=== PATIENT | male | born 1980 | race Caucasian/White ===

== ENCOUNTER 2019-11-09 07:57 | Emergency (ER) | payer SELFPAY ==
[2019-11-09 08:01] VITALS: BP 141/84; PULSE 86; RESP 16; TEMP 36.8; O2SAT 99; BMI 27.3
--- NOTE | 2019-11-09 08:02 | W.ED.URI ---
Documented by User: Luis E Castaneda DO 11/09/19 15:59 HPI - URI/Sore Throat General: Chief Complaint: Dental/Oral Stated Complaint: SORE THROAT Time Seen by Provider: 11/09/19 08:01 History of Present Illness: HPI Narrative: 39 yo male presents with a sore throat. It began about 4 to 5 days ago he has some amoxicillin he started taking 3 to 4 days ago from previous prescription. He had a fever but no rashes been nauseous not had any cough. Has not had any shortness of breath. He has severe throat pain localized to the left side. He states he gets these about once or twice per year previously he has had a retropharyngeal abscess that required surgical drainage. MD elicited complaint: fever and sore throat Pertinent past history: other (Recurrent strep including retropharyngeal abscesses requiring surgical drainage in the past) Onset (ago): day(s) (3 to 4 days) Consistency: constant Severity: severe Pain scale (0-10): 10 Description of mucous: purulent Able to tolerate fluids by mouth: Yes Exacerbating factors: swallowing Relieving factors: nothing Context: sick contacts Associated symptoms: Reports change in voice, chills, headache(s), nausea and vomiting; Deny chest pain, ear or mastoid pain or nasal congestion Treatments prior to arrival: acetaminophen, ibuprofen and antibiotics (Started a leftover course of amoxicillin 3 to 4 days ago) Review of Systems Const: Reports: chills ENMT: Denies: throat pain, ear or mastoid pain, nasal discharge or nasal congestion Card: Denies: chest pain, edema, dyspnea on exertion or orthopnea Resp: Denies: dyspnea, productive cough or non-productive cough GI: Reports: nausea and vomiting : Denies: flank pain, dysuria, urinary frequency or urinary urgency Skin/Breast: Denies: rash or pruritus Neuro: Reports: headache(s) PFSH ED PFSH: Medical History (Updated 11/09/19 @ 10:56 by Heidi Crow) History of retropharyngeal abscess History of seizures Social History Current gender identity: Male Physical Exam Const: COMMON NORMALS: no acute distress GENERAL APPEARANCE: cooperative and comfortable ORIENTATION/CONSCIOUSNESS: Yes awake, Yes oriented to person, Yes oriented to place and Yes oriented to time HENMT: COMMON NORMALS: normocephalic, atraumatic, hearing grossly normal bilaterally, external ears normal, EAC's normal, TM's normal bilaterally and Normal nasal mucous membranes and turbinates present HEAD & SCALP: normocephalic and atraumatic NOSE: Normal nasal mucous membranes and turbinates present EXTERNAL EAR: Yes external ears normal EXTERNAL AUDITORY CANAL: EAC's normal TYMPANIC MEMBRANE: TM's normal bilaterally OTHER: Enlarged retropharyngeal abscess on the left shifting to the midline, but does not cross the midline. There is no retropharyngeal abscess on the right there is exudative drainage. Markedly erythematous. Eye: COMMON NORMALS: Equal, round and reactive pupils present, EOMs intact bilaterally, conjunctivae normal and no scleral icterus CONJUNCTIVA: Yes conjunctivae normal PUPIL: Yes Equal, round and reactive pupils present Neck/C-Spine: COMMON NORMALS: full ROM, no lymphadenopathy, supple and no JVD Lymph: LYMPHATIC: no lymphadenopathy noted and no lymphedema noted Resp: COMMON NORMALS: normal respiratory effort, No retractions, No use of accessory muscles and clear to auscultation bilaterally AUSCULTATION: clear to auscultation bilaterally Cardio: COMMON NORMALS: no JVD, regular rate, regular rhythm and No murmurs present (Cardio) RATE: regular rate RHYTHM: regular rhythm GI: COMMON NORMALS: Soft to palpation and No hepatosplenomegaly present AUSCULTATION: Yes normoactive bowel sounds PALPATION: Yes Soft to palpation, No Tenderness to palpation present (GI), No Guarding due to palpation present (GI) and Yes No hepatosplenomegaly present Extremity: COMMON NORMALS: normal to inspection, capillary refill normal, no clubbing, cyanosis or edema, no calf tenderness and no pedal edema Neuro: SENSORIUM/ORIENTATION: Yes oriented to person, Yes oriented to place and Yes oriented to time Skin: COMMON NORMALS: no rashes or lesions noted GENERAL SKIN EXAM: no rashes or lesions noted Course Vital Signs: Vital signs: Vital Signs Temperature 98.3 F 11/09/19 08:01 Pulse Rate 70 11/09/19 11:49 Respiratory Rate 14 11/09/19 11:49 Blood Pressure 145/90 11/09/19 11:49 Pulse Oximetry 99 11/09/19 11:49 MDM - URI/Sore Throat MDM Narrative: Medical decision making narrative: Care turned over to Dr. Crow at change of shift. Please see his notes for final diagnosis and disposition. Lab Data: Labs: Lab Results 11/09/19 11/09/19 11/09/19 Range/Units 08:20 08:20 10:32 WBC 12.3 H (4.0-10.0) 10^3/ uL RBC 4.95 (4.1-5.3) 10^6/u L Hgb 16.0 (11.7-16.6) g/dL Hct 46.9 (42.0-52.0) % MCV 94.7 H (80-94) fL MCH 32.3 (28.0-34.0) pg MCHC 34.1 (30.0-36.0) g/dL RDW 13.2 (12.1-15.1) % Plt Count 335 (130-400) 10^3/c mm MPV 9.4 (7.4-10.4) fL Neut % (Auto) 75.7 % Lymph % (Auto) 12.6 % [place] % (Auto) 9.8 % Eos % (Auto) 1.3 % Baso % (Auto) 0.3 % Neut # (Auto) 9.3 H (1.8-7.7) 10^3/u L Lymph # (Auto) 1.6 (0.8-4.8) 10^3/u L [place] # (Auto) 1.2 H (0.2-0.9) 10^3/u L Eos # (Auto) 0.2 (0.0-0.8) 10^3/u L Baso # (Auto) 0.0 (0.0-0.1) 10^3/u L Nucleated RBC % (a uto) 0 % Nucleated RBCs # 0.0 /100WBC Sodium 137 (136-145) mmol/L Potassium 4.0 (3.5-5.1) mmol/L Chloride 99 (98-107) mmol/L Carbon Dioxide 26 (22-29) mmol/L Anion Gap 16.0 (5-19) BUN 8 (6-20) mg/dL Creatinine 1.0 (0.7-1.2) mg/dL GFR Calculation 82.8 L (90-130) mL/min Glucose 128 H (65-115) mg/dL Calculated Osmolal ity 282 L (285-295) mOsm/k g Calcium 10.3 (8.5-10.5) mg/dL Total Bilirubin 0.4 (0.15-1.2) mg/dL AST 17 (0-40) U/L ALT 14 (0-41) U/L Alkaline Phosphata se 99 (40-130) IU/L Total Protein 8.0 (6.6-8.7) g/dL Albumin 4.1 (3.5-5.2) g/dL Globulin 3.9 (1.3-4.6) g/dL Urine Color Yellow (Yellow) Urine Appearance Clear (CLEAR) Urine pH 7 (5-7) Ur Specific Gravit y 1.005 (1.005-1.030) Urine Protein Neg (Negative) Urine Glucose (UA) Norm (Normal) Urine Ketones Negative (Negative) Urine Blood Neg (Negative) Urine Nitrate Negative (Negative) Urine Bilirubin Neg (NEGATIVE) Urine Urobilinogen Norm (Negative) mg/dL Ur Leukocyte Chantel ase Negative (Negative) Discharge Plan Discharge Patient Disposition: Home, Self-Care Clinical Impression: Abscess, peritonsillar Condition: Stable Prescriptions: New prednisone 10 mg tablet 20 mg PO TID 5 Days Qty: 30 RF: 0 [place] 5-325 mg tablet 1 tab PO Q6H PRN (Reason: pain) 5 Days Qty: 12 RF: 0 Zofran 4 mg tablet 4 mg PO Q6H PRN (Reason: nausea and vomiting) Qty: 20 RF: 0 Cleocin HCl 150 mg capsule 300 mg PO Q6H 10 Days Qty: 80 RF: 0 No Action lamotrigine [Lamictal] 25 mg tablet 25 mg PO DAILY Qty: 30 RF: 1 aripiprazole [Abilify] 5 mg tablet 5 mg PO DAILY Qty: 30 RF: 1 Discharge Orders: Discharge Order (Routine); Ordered 11/09/19 Ordered By: Heidi Crow Referrals: Torie Fraesr MD [Primary Care Provider] - Discharge Diet: Clear Liquid Discharge Activity: Limit activity as instructed Patient Instructions: Peritonsillar Abscess (ED) Activity Restrictions/Additional Instructions: Please return to the ER immediately for any of the signs or symptoms listed on your discharge instruction sheets, worsening/changing of your symptoms, you are not getting better as quickly as expected, or for ANY other cause or concerns. Call Colin JESSICA in the clinic first thing tomorrow morning [phone] and they will be certain to fit you in tomorrow for definitive management of your abscess. Return to the ER sooner for increased pain, difficulty swallowing, vomiting, or for any other cause for concern. Discharge Date/Time: 11/09/19 11:49 Sign Out Sign Out Data: Patient Sign Out occurred on 11/09/19 at 09:14. Patient's care was discussed, and care was transferred from to Heidi Crow. Coding Level of Care Code ED Branch Store Manager for Chg Fwd Exam Comprehensive Documented by User: Heidi Crow 11/09/19 10:58 HPI - URI/Sore Throat General: Chief Complaint: Dental/Oral Stated Complaint: SORE THROAT Time Seen by Provider: 11/09/19 08:01 [facility], [facility] ED PFSH: Medical History (Updated 11/09/19 @ 10:56 by Heidi Crow) History of retropharyngeal abscess History of seizures Social History Current gender identity: Male Course Vital Signs: Vital signs: Vital Signs Temperature 98.3 F 11/09/19 08:01 Pulse Rate 70 11/09/19 11:49 Respiratory Rate 14 11/09/19 11:49 Blood Pressure 145/90 11/09/19 11:49 Pulse Oximetry 99 11/09/19 11:49 MDM - URI/Sore Throat MDM Narrative: Medical decision making narrative: Patient's case was reviewed with the ENT on-call Dr. Shaw at [facility]. She agrees to see the patient in follow-up tomorrow for definitive drainage. I reviewed this plan with the patient and he confirms to me that he can make that appointment and should not have any problem doing so. He agrees to return should his symptoms change or worsen but at this time he is talking much better and he is feeling a great deal improved from when he came in. Colin wants the patient to be on clindamycin and steroids at home. Lab Data: Attestation: I reviewed the patient's lab results. Labs: Lab Results 11/09/19 11/09/19 11/09/19 Range/Units 08:20 08:20 10:32 WBC 12.3 H (4.0-10.0) 10^3/ uL RBC 4.95 (4.1-5.3) 10^6/u L Hgb 16.0 (11.7-16.6) g/dL Hct 46.9 (42.0-52.0) % MCV 94.7 H (80-94) fL MCH 32.3 (28.0-34.0) pg MCHC 34.1 (30.0-36.0) g/dL RDW 13.2 (12.1-15.1) % Plt Count 335 (130-400) 10^3/c mm MPV 9.4 (7.4-10.4) fL Neut % (Auto) 75.7 % Lymph % (Auto) 12.6 % [place] % (Auto) 9.8 % Eos % (Auto) 1.3 % Baso % (Auto) 0.3 % Neut # (Auto) 9.3 H (1.8-7.7) 10^3/u L Lymph # (Auto) 1.6 (0.8-4.8) 10^3/u L [place] # (Auto) 1.2 H (0.2-0.9) 10^3/u L Eos # (Auto) 0.2 (0.0-0.8) 10^3/u L Baso # (Auto) 0.0 (0.0-0.1) 10^3/u L Nucleated RBC % (a uto) 0 % Nucleated RBCs # 0.0 /100WBC Sodium 137 (136-145) mmol/L Potassium 4.0 (3.5-5.1) mmol/L Chloride 99 (98-107) mmol/L Carbon Dioxide 26 (22-29) mmol/L Anion Gap 16.0 (5-19) BUN 8 (6-20) mg/dL Creatinine 1.0 (0.7-1.2) mg/dL GFR Calculation 82.8 L (90-130) mL/min Glucose 128 H (65-115) mg/dL Calculated Osmolal ity 282 L (285-295) mOsm/k g Calcium 10.3 (8.5-10.5) mg/dL Total Bilirubin 0.4 (0.15-1.2) mg/dL AST 17 (0-40) U/L ALT 14 (0-41) U/L Alkaline Phosphata se 99 (40-130) IU/L Total Protein 8.0 (6.6-8.7) g/dL Albumin 4.1 (3.5-5.2) g/dL Globulin 3.9 (1.3-4.6) g/dL Urine Color Yellow (Yellow) Urine Appearance Clear (CLEAR) Urine pH 7 (5-7) Ur Specific Gravit y 1.005 (1.005-1.030) Urine Protein Neg (Negative) Urine Glucose (UA) Norm (Normal) Urine Ketones Negative (Negative) Urine Blood Neg (Negative) Urine Nitrate Negative (Negative) Urine Bilirubin Neg (NEGATIVE) Urine Urobilinogen Norm (Negative) mg/dL Ur Leukocyte Chantel ase Negative (Negative) Imaging Data^: CT Soft Tissue Neck: Radiologist's impression: [place] [address] CT Scan Report Signed Patient: David Parks Unit #: [id number] : 1980 Age/Sex: 39 / M ADM Date: 11/09/19 Loc: ER Room/Bed: Attending Dr: Ordering Provider/Ordering MD: Luis E Castaneda DO Date of Service: 11/09/19 Procedure(s): CT neck w con* [id number] Accession Number(s): [id number] Report Number: [id number] PROCEDURE INFORMATION: Exam: CT Neck With Contrast Exam date and time: 11/09/2019 8:27 AM Age: 39 years old Clinical indication: Throat pain; Prior surgery; Surgery type: HX of abscess; Additional info: L sife pharyngeal abscess TECHNIQUE: Imaging protocol: Computed tomography images of the neck with intravenous contrast. Delayed images were also obtained. Radiation optimization: All CT scans at this facility use at least one of these dose optimization techniques: automated exposure control; mA and/or kV adjustment per patient size (includes targeted exams where dose is matched to clinical indication); or iterative reconstruction. Contrast material: Omnipaque 300; Contrast volume: 95 ml; Contrast route: INTRAVENOUS (IV); COMPARISON: CT neck w con* [id number] 01/16/2019 9:40 PM RADIATION DOSE METRICS: Total DLP (mGy-cm): 737.44 FINDINGS: Auditory system: Left hypo pharyngeal sidewall edema. Nasopharynx: Unremarkable. Dental: Carious right mandibular 2nd molar with 5.1 x 4.1 x 5.0 mm periapical abscess. Oropharynx: Bilateral palatine tonsillar hypertrophy. Extensive left peritonsillar abscess posterior medially, inferiorly and inferolaterally, in aggregate measuring maximally 3.0 x 2.5 x 2.2 cm. Left palatine tonsillar tonsilloliths. Left parapharyngeal space soft tissue edema. Hypopharynx: Unremarkable. Larynx: Unremarkable. Normal epiglottis. Retropharyngeal space: No retropharyngeal abscess identified. Submandibular/Parotid glands: Normal. Glands are normal in size. Thyroid: Normal. No enlarged or calcified nodules. Lymph nodes: Left level 2 lymph nodes, largest measuring 15.1 mm short axis. Right level 2 lymph nodes, largest measuring 13 mm short axis. Left posterior submandibular lymph node measuring 7 mm short axis. Left level 3 lymph nodes, largest measuring 12.9 mm short axis. Trachea: Visualized trachea is unremarkable. Lungs: Unremarkable as visualized. Bones/joints: Unremarkable. No acute fracture. Soft tissues: Unremarkable. No significant soft tissue swelling. CT/CT neck w con* [id number] IMPRESSION: 1. Left peritonsillar abscess. 2. Bilateral cervical lymphadenopathy. 3. Carious right mandibular 2nd molar with 5periapical abscess. Radiation Dose CTDIVOL = (mGy): DLP = 737.44 (mGy-cm) Dictated By: Neo Naylor MD Signed By: Neo Naylor MD Signed Date/Time: 11/09/19950 DD/ 8 Discharge Plan Discharge Patient Disposition: Home, Self-Care Clinical Impression: Abscess, peritonsillar Condition: Stable Prescriptions: New prednisone 10 mg tablet 20 mg PO TID 5 Days Qty: 30 RF: 0 [place] 5-325 mg tablet 1 tab PO Q6H PRN (Reason: pain) 5 Days Qty: 12 RF: 0 Zofran 4 mg tablet 4 mg PO Q6H PRN (Reason: nausea and vomiting) Qty: 20 RF: 0 Cleocin HCl 150 mg capsule 300 mg PO Q6H 10 Days Qty: 80 RF: 0 No Action lamotrigine [Lamictal] 25 mg tablet 25 mg PO DAILY Qty: 30 RF: 1 aripiprazole [Abilify] 5 mg tablet 5 mg PO DAILY Qty: 30 RF: 1 Discharge Orders: Discharge Order (Routine); Ordered 11/09/19 Ordered By: Heidi Crow Referrals: Torie Fraser MD [Primary Care Provider] - Discharge Diet: Clear Liquid Discharge Activity: Limit activity as instructed Patient Instructions: Peritonsillar Abscess (ED) Activity Restrictions/Additional Instructions: Please return to the ER immediately for any of the signs or symptoms listed on your discharge instruction sheets, worsening/changing of your symptoms, you are not getting better as quickly as expected, or for ANY other cause or concerns. Call Ms. Colin LOPEZ in the clinic first thing tomorrow morning [phone] and they will be certain to fit you in tomorrow for definitive management of your abscess. Return to the ER sooner for increased pain, difficulty swallowing, vomiting, or for any other cause for concern. Discharge Date/Time: 11/09/19 11:49 Sign Out Sign Out Data: Patient Sign Out occurred on 11/09/19 at 09:14. Patient's care was discussed, and care was transferred from to Heidi Crow. Coding Level of Care Code ED Branch Store Manager for Chg Fwd Exam Comprehensive
--- NOTE | 2019-11-09 08:09 | CTR_ITS ---
PROCEDURE INFORMATION: Exam: CT Neck With Contrast Exam date and time: 11/09/2019 8:27 AM Age: 39 years old Clinical indication: Throat pain; Prior surgery; Surgery type: HX of abscess; Additional info: L sife pharyngeal abscess TECHNIQUE: Imaging protocol: Computed tomography images of the neck with intravenous contrast. Delayed images were also obtained. Radiation optimization: All CT scans at this facility use at least one of these dose optimization techniques: automated exposure control; mA and/or kV adjustment per patient size (includes targeted exams where dose is matched to clinical indication); or iterative reconstruction. Contrast material: Omnipaque 300; Contrast volume: 95 ml; Contrast route: INTRAVENOUS (IV); COMPARISON: CT neck w con* [id number] 01/16/2019 9:40 PM RADIATION DOSE METRICS: Total DLP (mGy-cm): 737.44 FINDINGS: Auditory system: Left hypo pharyngeal sidewall edema. Nasopharynx: Unremarkable. Dental: Carious right mandibular 2nd molar with 5.1 x 4.1 x 5.0 mm periapical abscess. Oropharynx: Bilateral palatine tonsillar hypertrophy. Extensive left peritonsillar abscess posterior medially, inferiorly and inferolaterally, in aggregate measuring maximally 3.0 x 2.5 x 2.2 cm. Left palatine tonsillar tonsilloliths. Left parapharyngeal space soft tissue edema. Hypopharynx: Unremarkable. Larynx: Unremarkable. Normal epiglottis. Retropharyngeal space: No retropharyngeal abscess identified. Submandibular/Parotid glands: Normal. Glands are normal in size. Thyroid: Normal. No enlarged or calcified nodules. Lymph nodes: Left level 2 lymph nodes, largest measuring 15.1 mm short axis. Right level 2 lymph nodes, largest measuring 13 mm short axis. Left posterior submandibular lymph node measuring 7 mm short axis. Left level 3 lymph nodes, largest measuring 12.9 mm short axis. Trachea: Visualized trachea is unremarkable. Lungs: Unremarkable as visualized. Bones/joints: Unremarkable. No acute fracture. Soft tissues: Unremarkable. No significant soft tissue swelling. CT/CT neck w con* [id number] IMPRESSION: 1. Left peritonsillar abscess. 2. Bilateral cervical lymphadenopathy. 3. Carious right mandibular 2nd molar with 5periapical abscess. Radiation Dose CTDIVOL = (mGy): DLP = 737.44 (mGy-cm)
[2019-11-09 08:10] VITALS: O2SAT 100
[2019-11-09] MEDS: morphine 4 mg/mL SDV 1 mL IVP (08:30)
[2019-11-09] MEDS: ampicillin-sulbactam 3 GM in sodium chloride 0.9% (plus) 50 ML IV (08:30)
[2019-11-09] MEDS: ondansetron 2 mg/ML SDV 2 mL 4 MG IVP ×2 (08:30→10:26)
[2019-11-09] MEDS: sodium chloride 0.9% 1,000 ML 999 ML IV (08:31)
[2019-11-09 08:45] LABS: Basophils % 0.3 %; Eosinophils # 0.2 10^3/uL (0.0-0.8); Eosinophils % 1.3 %; Hematocrit 46.9 % (42.0-52.0); Lymphocytes # 1.6 10^3/uL (0.8-4.8); Lymphocytes % 12.6 %; Mean Corpuscular HGB Conc 34.1 g/dL (30.0-36.0); Mean Corpuscular Hemoglobin 32.3 pg (28.0-34.0); Mean Corpuscular Volume 94.7 fL (80-94); Mean Platelet Volume 9.4 fL (7.4-10.4); Monocytes # 1.2 10^3/uL (0.2-0.9); Monocytes % 9.8 %; Neutrophils # 9.3 10^3/uL (1.8-7.7); Neutrophils % 75.7 %; Nucleated Red Blood Cells % 0 %; Platelet Count 335 10^3/cmm (130-400); Red Blood Count 4.95 10^6/uL (4.1-5.3); Red Cell Distribution Width 13.2 % (12.1-15.1); White Blood Count 12.3 10^3/uL (4.0-10.0)
--- NOTE | 2019-11-09 08:46 | PC.NURSE ---
back from CT by stretcher with tech
[2019-11-09] MEDS: iohexol 300 mg/mL 100 mL Btl IV (08:50)
[2019-11-09 08:59] LABS: Alanine Aminotransferase 14 U/L (0-41); Albumin Level 4.1 g/dL (3.5-5.2); Alkaline Phosphatase 99 IU/L (40-130); Aspartate Amino Transferase 17 U/L (0-40); Blood Urea Nitrogen 8 mg/dL (6-20); Calcium 10.3 mg/dL (8.5-10.5); Carbon Dioxide 26 mmol/L (22-29); Chloride 99 mmol/L (98-107); Globulin 3.9 g/dL (1.3-4.6); Glomerular Filtration Rate 82.8 mL/min (90-130); Glucose 128 mg/dL (65-115); Osmolality Calculated 282 mOsm/kg (285-295); Sodium 137 mmol/L (136-145); Total Bilirubin 0.4 mg/dL (0.15-1.2)
[2019-11-09 09:53] VITALS: BP 132/94; PULSE 70; O2SAT 94
[2019-11-09 10:26] VITALS: RESP 16; O2SAT 98
[2019-11-09] MEDS: piperacillin-tazobactam 4.5 GM in sodium chloride 0.9% (plus) 50 ML IV (10:26)
[2019-11-09] MEDS: HYDROmorphone 1 mg/mL INJ 1 mL 0.5 MG IVP (10:26)
[2019-11-09 10:33] LABS: Add Urine Microscopic? NO
[2019-11-09 10:46] LABS: Bilirubin Urine Neg (NEGATIVE); Blood Urine Neg (Negative); Glucose Urine UA Norm (Normal); Ketones Urine Negative (Negative); Leukocyte Esterase Urine Negative (Negative); Nitrate Urine Negative (Negative); Protein Urine Neg (Negative); Specific Gravity, Urine 1.005 (1.005-1.030); Urine Appearance Clear (CLEAR); Urine Color Yellow (Yellow); Urobilinogen Urine Norm (Negative); pH Urine 7 (5-7)
[2019-11-09] MEDS: clindamycin 900 MG/50 ML PREMIX 100 MG IV (11:15)
[2019-11-09] MEDS: dexamethasone 10 mg/mL INJ 12 MG IVP (11:48)
[2019-11-09 11:49] VITALS: BP 145/90; PULSE 70; RESP 14; O2SAT 99
== END 2019-11-09 11:49 | disposition home or self-care (01) ==
PROVIDERS: Family Medicine; Emergency Provider Emergency Medicine; PCP Family Medicine
DX: J36 Peritonsillar abscess (principal)
CPT/HCPCS: 12345; 70491; 80053; 81003; 85025; 87040; 96365; 96367; 96375; 96376; 99283; 99284; J0295; J1100; J1170; J2270; J2405; J2543; J3490; J7030; Q9967

== ENCOUNTER 2020-05-01 22:08 | Emergency (ER) | payer SELFPAY ==
[2020-05-01 22:23] VITALS: BP 134/93; PULSE 97; RESP 16; TEMP 37.3; O2SAT 98; BMI 25.7
--- NOTE | 2020-05-01 22:41 | ED_ITS ---
HPI - Neck Pain/Injury General: Chief Complaint: Neck Pain/Injury Stated Complaint: suspects strep throat Time Seen by Provider: 05/01/20 22:29 History of Present Illness: HPI Narrative: Patient sore throat times couple days. MD complaint: neck pain Onset (ago): day(s) Associated symptoms: Denies headache(s) or nausea Review of Systems Const: Denies: fever(s), chills or body aches Eyes: Denies: change in vision or blurry vision ENMT: Reports: throat pain and odynophagia; Denies: nasal congestion Card: Denies: chest pain or dyspnea on exertion Resp: Denies: dyspnea, productive cough or non-productive cough GI: Denies: abdominal pain, nausea or vomiting : Denies: difficulty urinating Musc: Denies: extremity pain Skin/Breast: Denies: rash Neuro: Denies: headache(s) Psych: Denies: anxiety or depression Zach/Lymph: Denies: easy bruising PFSH ED PFSH: Medical History (Updated 05/01/20 @ 23:01 by BETSY Eric) History of retropharyngeal abscess History of seizures Social History (Updated 04/27/20 @ 18:06 by Óscar Chadwick RN) Smoking and tobacco status: current every day smoker cigarettes Packs smoked per day: 0.5 Alcohol intake: never Current gender identity: Male Physical Exam Const: COMMON NORMALS: no acute distress, average body habitus and patient oriented x3 HENMT: COMMON NORMALS: normocephalic HEAD & SCALP: normal to inspection and normocephalic FACE & SINUS: normal facial exam THROAT: peritonsillar mass left (Mild in size) tender and edematous Eye: COMMON NORMALS: conjunctivae normal GENERAL EYE: appearance normal, both eyes and all related structures CONJUNCTIVA: Yes conjunctivae normal Neck/C-Spine: COMMON NORMALS: no JVD Chest: COMMONS NORMALS: normal inspection of the chest Resp: COMMON NORMALS: normal respiratory effort and clear to auscultation bilaterally AUSCULTATION: clear to auscultation bilaterally Cardio: COMMON NORMALS: no JVD, regular rate and regular rhythm RATE: regular rate RHYTHM: regular rhythm GI: COMMON NORMALS: Normal to inspection, nondistended, normoactive bowel sounds present Extremity: COMMON NORMALS: normal to inspection and full ROM Neuro: COMMON NORMALS: patient oriented x3 Course Vital Signs: Vital signs: Vital Signs Temperature 99.1 F 05/01/20 22:23 Pulse Rate 97 05/01/20 22:23 Respiratory Rate 16 05/01/20 22:23 Blood Pressure 134/93 05/01/20 22:23 Pulse Oximetry 98 05/01/20 22:23 MDM - Neck Pain/Injury MDM Narrative: Medical decision making narrative: Patient informed that he worsens he is to return here , explained tonsil abscess abscess to him. Patient is able to swallow fine abscesses not dislodging uvula patient will follow back up here tomorrow if he worsens follow-up with his family doctor Sunday and will keep appointment Dr. Ellsworth's office. Lab Data: Labs: Lab Results 05/01/20 Range/Units 22:32 Group A Strep Rapi d Negative (Negative) Discharge Plan Discharge Patient Disposition: Home Clinical Impression: Abscess, peritonsillar Condition: Stable Prescriptions: New Medrol (Kemal) 4 mg tablets,dose pack See Rx Instructions .ROUTE .COMPLEX Qty: 21 RF: 0 cefdinir 300 mg capsule 300 mg PO BID 10 Days Qty: 20 RF: 0 tramadol 50 mg tablet 50 mg PO TID PRN (Reason: pain) Qty: 14 RF: 0 No Action aripiprazole [Abilify] 5 mg tablet 5 mg PO DAILY Qty: 30 RF: 2 lamotrigine [Lamictal] 25 mg tablet 25 mg PO DAILY Qty: 30 RF: 2 fluoxetine 20 mg capsule 20 mg PO DAILY Qty: 30 RF: 2 Zofran 4 mg tablet 4 mg PO Q6H PRN (Reason: nausea and vomiting) Qty: 20 RF: 0 Discharge Orders: Discharge ED (Routine); Ordered 05/01/20 Ordered By: Cristóbal Mclauglhin Referrals: Torie Fraser MD [Primary Care Provider] - Discharge Diet: Advance as tolerated Discharge Activity: Resume usual activity Patient Instructions: Peritonsillar Abscess - Adult Activity Restrictions/Additional Instructions: Follow-up with medical provider as directed. Take medications as prescribed. Return to the ER or your medical provider if condition worsens. Please read and understand discharge instructions. If any questions ask please. Follow back up the ER if worsening symptoms if you cannot swallow, you start drooling or have a hard time breathing. Follow-up your family medical provider begin the week just to have a recheck done. Case management will make an appointment with ear nose throat doc here will notify appointment time on Sunday. Coding Level of Care Code ED Universal Grinder Operator for Chg Fwd Exam Comprehensive
[2020-05-01] MEDS: dexamethasone 4 mg/mL INJ 10 MG IM (22:51)
[2020-05-01] MEDS: cefTRIAXone 1,000 MG in lidocaine 1% 2.1 ML 2 MG IM (22:55)
[2020-05-01 23:01] LABS: Rapid Strep A Test Negative (Negative)
[2020-05-01] MEDS: HYDROcodone-acetaminophen 7.5-325 mg Tablet 1 TAB PO (23:13)
[2020-05-01 23:39] VITALS: BP 143/93; PULSE 98; RESP 18; TEMP 37.4
--- NOTE | 2020-05-03 09:34 | DCPLANNER ---
nurse healthcare manager had message to schedule a follow up appointment for patient with ENT. nurse healthcare manager emailed Cisco Wharton at general surgery patients information. Patients information will be printed and reviewed. Clinic will call patient with appointment information.
--- NOTE | 2020-05-07 10:44 | DCPLANNER ---
Patient has a follow up appointment scheduled for Sunday, May 10, 2020 with ENT. Clinic will call patient with appointment information.
--- NOTE | 2020-05-26 15:33 | DCPLANNER ---
Patient had an appointment scheduled for 05.10.20 with ENT - appointment was cancelled.
== END 2020-05-01 23:41 | disposition home or self-care (01) ==
PROVIDERS: Emergency Provider Nurse Practitioner Family; PCP Family Medicine
DX: J36 Peritonsillar abscess (principal); F17.210 Nicotine dependence, cigarettes, uncomplicated
CPT/HCPCS: 12345; 87081; 87880; 96372; 96375; 99281; 99283; J0696; J1100

== ENCOUNTER 2020-06-15 17:07 | Emergency (ER) | payer SELFPAY ==
[2020-06-15 17:11] VITALS: BP 157/101; PULSE 88; RESP 18; TEMP 36.8; O2SAT 96; BMI 25.1
--- NOTE | 2020-06-15 17:26 | ED_ITS ---
HPI - Dental/Oral General: Chief complaint: Dental/Oral Stated complaint: Dental/oral, left side of mouth Time Seen by Provider: 06/15/20 17:14 History of Present Illness: HPI Narrative: Patient is a 40-year-old male comes to the ED with dental pain on left side of mouth. Symptoms started on Sunday night. He says pain is in left lower jaw and he rates it a 7 out of 10. He states he has had a problem with this tooth in the past and was scheduled to get it pulled but he lost his insurance. He now has a job again with insurance and says he is going to call dentist tomorrow to set up an appointment. Denies fever, chills, nausea/vomiting, throat swelling or trouble breathing. Severity scale (1-10): 7 Associated symptoms: Denies fever(s) or odynophagia Review of Systems Const: Denies: fever(s), chills or fatigue Eyes: Denies: change in vision or eye discomfort ENMT: Reports: dental pain; Denies: throat pain, odynophagia, nasal discharge or nasal congestion Card: Denies: chest pain, palpitations, edema, swelling of feet/ankles, dyspnea on exertion or orthopnea Resp: Denies: dyspnea, productive cough or non-productive cough GI: Denies: abdominal pain, nausea, vomiting, diarrhea, constipation or hematochezia : Denies: flank pain, difficulty urinating, dysuria or hematuria Musc: Denies: neck pain, back pain or extremity swelling Skin/Breast: Denies: rash or new lesions Neuro: Denies: headache(s), numbness in extremities or weakness in extremities [facility] ED PFSH: Medical History History of retropharyngeal abscess History of seizures Social History Smoking and tobacco status: current every day smoker cigarettes Packs smoked per day: 0.5 Alcohol intake: never Current gender identity: Male Physical Exam Const: COMMON NORMALS: no acute distress, patient oriented x3, healthy appearing and alert GENERAL APPEARANCE: cooperative and comfortable HENMT: COMMON NORMALS: normocephalic HEAD & SCALP: normocephalic FACE & SINUS: Facial tenderness on exam of face and sinuses on the left mandible MOUTH: Normal oral and palatal mucosa present TEETH & GINGIVA: Yes caries (Tooth #17 and #18.) and Yes gingiva abnormal edematous (Around tooth #17 tooth #18) and tender (Around tooth #17 tooth #18) THROAT: posterior oropharynx normal and uvula midline OTHER: No visible facial swelling or palpable mass on face or neck. Neck/C-Spine: COMMON NORMALS: no lymphadenopathy and supple GENERAL: Yes normal visual inspection Resp: COMMON NORMALS: normal respiratory effort, No retractions, No use of accessory muscles and clear to auscultation bilaterally AUSCULTATION: clear to auscultation bilaterally Cardio: COMMON NORMALS: regular rate, regular rhythm, S1 normal heart sound present, S2 normal heart sound present, No gallops present (Cardio), No clicks present (Cardio), No murmurs present (Cardio) and Peripheral pulses 2+ throughout RATE: regular rate RHYTHM: regular rhythm HEART SOUNDS: S1 normal heart sound present and S2 normal heart sound present PERIPHERAL PULSES: Peripheral pulses 2+ throughout GI: COMMON NORMALS: Normal to inspection, nondistended, normoactive bowel sounds present, Soft to palpation, non-tender and no masses PALPATION: Yes Soft to palpation : COMMON NORMALS: Yes no CVA tenderness BLADDER/KIDNEY EXAM: Yes no CVA tenderness Back/Pelvis: COMMON NORMALS: no CVA tenderness Extremity: COMMON NORMALS: normal to inspection Neuro: COMMON NORMALS: patient oriented x3 and moves all extremities SENSORIUM/ORIENTATION: Yes alert Skin: GENERAL SKIN EXAM: dry skin Course Vital Signs: Vital signs: Vital Signs Temperature 98.2 F 06/15/20 17:11 Pulse Rate 87 06/15/20 17:41 Respiratory Rate 18 06/15/20 17:41 Blood Pressure 142/74 06/15/20 17:41 Pulse Oximetry 98 06/15/20 17:41 MDM - Dental/Oral MDM Narrative: Medical decision making narrative: Patient is a 40-year-old male comes to the ED with dental pain. Exam shows some dental caries at tooth #17 and #18. Denies fever, chills, nausea/vomiting or any trouble breathing. No visible facial swelling or mass palpated in neck. Patient was given a dose of hydrocodone while here in the ED for pain and he was also given a dose of clindamycin here in the ED. patient was discharged with a prescription for clindamycin and ibuprofen 800 mg tablets. He was told to call dentist to set up an appointment for further evaluation of dental pain. Return to ED precautions given. Patient understood agree with plan. Discharge Plan Discharge Patient Disposition: Home Clinical Impression: Pain due to dental caries Condition: Stable Prescriptions: New clindamycin HCl 150 mg capsule 300 mg PO QID 7 Days Qty: 56 RF: 0 ibuprofen 800 mg tablet 800 mg PO Q8H PRN (Reason: pain) Qty: 15 RF: 0 No Action aripiprazole [Abilify] 5 mg tablet 5 mg PO DAILY Qty: 30 RF: 2 Lamictal 25 mg tablet 25 mg PO DAILY RF: 0 Discharge Orders: Discharge ED (Routine); Ordered 06/15/20 Ordered By: Dustin Kumar Referrals: Torie Fraser MD [Primary Care Provider] - Discharge Diet: Regular Discharge Activity: Resume usual activity Patient Instructions: Dental Caries (ED), Toothache (ED) Activity Restrictions/Additional Instructions: Follow-up with medical provider as directed. Contact dentist and set up an appointment with for further evaluation of dental pain. Take medications as prescribed. Return to the ER or your medical provider if condition worsens. Please read and understand discharge instructions. If any questions, please ask. Coding Level of Care Code ED Network Technology Instructor for [facility] Fwjose daniel Exam Comprehensive
[2020-06-15] MEDS: HYDROcodone-acetaminophen 7.5-325 mg Tablet 1 TAB PO (17:40)
[2020-06-15] MEDS: clindamycin 150 mg Capsule 300 MG PO (17:40)
[2020-06-15 17:41] VITALS: BP 142/74; PULSE 87; RESP 18; O2SAT 98
== END 2020-06-15 17:44 | disposition home or self-care (01) ==
PROVIDERS: Emergency Provider Physician Assistant; PCP Family Medicine
DX: K02.9 Dental caries, unspecified (principal)
CPT/HCPCS: 12345; 99281; 99283

== ENCOUNTER → 2024-06-23 14:14 | Outpatient (BNVA) | payer OTHER, SELFPAY | PROVIDERS: PCP Family Medicine; Visit Provider Nurse Practitioner | DX: F33.2 Major depressive disorder, recurrent severe without psychotic features (principal) | CPT/HCPCS: 80061; 83036 ==

== ENCOUNTER 2024-08-07 18:37 | Emergency (ER) | payer MEDICAID, SELFPAY ==
[2024-07-15 16:45] VITALS: BP 119/64; BMI 29.3
[2024-08-07 19:06] VITALS: BP 135/78; PULSE 74; RESP 18; TEMP 37.3; O2SAT 96; BMI 28.5
[2024-08-07 20:02] LABS: Basophils % 0.2 %; Eosinophils # 0.1 10^3/uL (0.0-0.8); Eosinophils % 0.6 %; Hematocrit 49.8 % (37-53); Lymphocytes # 1.6 10^3/uL (0.8-4.8); Lymphocytes % 12.2 %; Mean Corpuscular HGB Conc 33.3 g/dL (30-55); Mean Corpuscular Hemoglobin 31.8 pg (27-33); Mean Corpuscular Volume 95.4 fl (82-101); Mean Platelet Volume 9.1 fL (7.4-10.4); Monocytes # 1.3 10^3/uL (0.2-0.9); Monocytes % 9.8 %; Neutrophils # 10.06 10^3/uL (1.8-7.7); Neutrophils % 76.9 %; Nucleated Red Blood Cells % 0 %; Platelet Count 298 10^3/cmm (157-399); Red Blood Count 5.22 10^6/uL (3.85-5.65); White Blood Count 13.09 10^3/uL (3.29-11.43)
[2024-08-07 20:19] LABS: Alanine Aminotransferase 14 U/L (0-41); Albumin Level 4.2 g/dL (3.5-5.2); Alkaline Phosphatase 83 U/L (40-130); Aspartate Amino Transferase 18 U/L (0-40); Blood Urea Nitrogen 12 mg/dL (6-20); Calcium 9.6 mg/dL (8.5-10.5); Carbon Dioxide 26 mmol/L (22-29); Chloride 97 mmol/L (98-107); Creatinine Clr Calc Pharmacy 108.6884; Globulin 4.2 g/dL (1.3-4.6); Glomerular Filtration Rate 80.8 mL/min (90-130); Glucose 97 mg/dL (65-115); Osmolality Calculated 282 mOsm/kg (285-295); Sodium 136 mmol/L (136-145); Total Bilirubin 0.5 mg/dL (0.15-1.2); Total Protein 8.4 g/dL (6.6-8.7)
[2024-08-07 20:32] LABS: Monoscreen Negative (Negative)
--- NOTE | 2024-08-07 20:33 | ED_ITS ---
HPI - General Adult 2 General: Chief complaint: Upper Respiratory Infection Stated complaint: throat worse strp Time Seen by Provider: 08/07/24 20:08 Source: patient Mode of arrival: ambulatory Limitations: no limitations History of Present Illness: Patient is a 44-year-old male who presents to ED today with a complaint of swollen and painful tonsils as well as dysphagia. He states he began noticing a sore throat approximately 3 to 4 days ago. He was seen at the walk-in clinic on Sunday and prescribed Augmentin. He states he did not have strep testing performed. He has been taking the Augmentin as prescribed but feels like symptoms are not improving. He has having difficulty and painful swallowing. He is controlling saliva/secretions well. He reports a previous history of a peritonsillar abscess that had to be drained by ENT in [place]. Patient states he has had recurrent tonsillitis/pharyngitis ever since he was a child. Onset (ago): day(s) Location: mouth (throat) Severity: moderate Pain Consistency: constant Relieving factors: none Exacerbating factors: other (swallowing) Associated symptoms: Deny headache(s), malaise, nausea or vomiting Treatments prior to arrival: other (abx) Related Data Previous Rx's ?Medication ?Instructions ?Recorded hydroxyzine HCl 25 mg tablet 25 mg PO DAILY PRN anxiet y #30 tabs 07/29/24 amoxicillin 500 mg-potassium 1 tab PO BID Pharyngitis #14 tabs 08/06/24 clavulanate 125 mg tablet (Augmentin) benzocaine 15 mg-menthol 10 mg 1 damari mucous membrane . q 2 hr PRN 08/06/24 lozenges (Chloraseptic Max) sore throat #15 ea loratadine 10 mg tablet 10 mg PO DAILY #30 tabs 07/01 prednisone 10 mg tablet 10 mg PO DAILY 6 days #20 ta bs 08/07/24 Allergies Allergy/AdvReac Type Severity Reaction Status Date / Time No Known Allergies Allergy Verified 08/07/24 19:06 Review of Systems 2 Const: Denies: fever(s), chills, body aches, fatigue or malaise ENMT: Reports: throat pain, enlarged tonsils and odynophagia; Denies: uvular edema, hoarseness, swelling of lips/tongue, oral sores, dental pain, ear or mastoid pain, nasal discharge, nasal congestion or sinus pain GI: Denies: nausea or vomiting Musc: Denies: neck pain Neuro: Denies: headache(s) PFSH ED 2 PFSH: Medical History Acute pharyngitis Cannabis use disorder in remission RIC (generalized anxiety disorder) Psychiatric care History of retropharyngeal abscess History of seizures Surgical History History of hernia repair Family History Father Prostate cancer Social History Smoking and tobacco/nicotine status: current every day tobacco/nicotine user (Pt. 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; no peritonsillar mass and no uvular edema Neck/C-Spine: COMMON NORMALS: no lymphadenopathy GENERAL: No anterior neck swelling and No submandibular swelling Resp: COMMON NORMALS: normal respiratory effort and clear to auscultation bilaterally AUSCULTATION: clear to auscultation bilaterally Cardio: COMMON NORMALS: regular rate and regular rhythm RATE: regular rate RHYTHM: regular rhythm Neuro: COMMON NORMALS: patient oriented x3 SENSORIUM/ORIENTATION: Yes alert Course 2 Vital Signs: Vital signs: Vital Signs Temperature 99.1 F 08/07/24 19:06 Pulse Rate 72 08/07/24 20:46 Respiratory Rate 18 08/07/24 20:46 Blood Pressure 126/95 08/07/24 20:46 Pulse Oximetry 98 08/07/24 20:46 Oxygen Delivery Me thod Room Air 08/07/24 20:46 MDM - General Adult Medical Decision Making Patient here for exudative tonsillitis. He has no evidence for peritonsillar abscess or deep space/retropharyngeal abscess. His vital signs are stable. Blood work overall is nonactionable. His strep and mono were both negative. Patient is controlling his secretions. No muffled voice. He feels better after IV antibiotics and dexamethasone. He was able to easily swallow fluids. Patient will be allowed discharge with recommendations to continue his antibiotics. Will put him on a steroid taper. Return ED precautions discussed. Medical Records I reviewed the patient's medical records. Lab Data I reviewed the patient's lab results. 08/07/24 19:31 08/07/24 19:31 Laboratory Results WBC 13.09 10^3/uL (3.29-11.43) H 08/07/24 19:31 RBC 5.22 10^6/uL (3.85-5.65) 08/07/24 19:31 Hgb 16.60 g/dL (11.27-16.99) 08/07/24 19:31 Hct 49.8 % (37-53) 08/07/24 19:31 MCV 95.4 fl (82-101) 08/07/24 19: MCH 31.8 pg (27-33) 08/07/24 19: MCHC 33.3 g/dL (30-55) 08/07/24 19:31 RDW 13.0 % (12.1-15.1) 08/07/24 19:31 Plt Count 298 10^3/cmm (157-399) 08/07/24 19: MPV 9.1 fL (7.4-10.4) 08/07/24 19:31 Neut % (Auto) 76.9 % 08/07/24 19:31 Lymph % (Auto) 12.2 % 08/07/24 19:31 [place] % (Auto) 9.8 % 08/07/24 19:31 Eos % (Auto) 0.6 % 08/07/24 19:31 Baso % (Auto) 0.2 % 08/07/24 19:31 Neut # (Auto) 10.06 10^3/uL (1.8-7.7) H 08/07/24 19:31 Lymph # (Auto) 1.6 10^3/uL (0.8-4.8) 08/07/24 19:31 [place] # (Auto) 1.3 10^3/uL (0.2-0.9) H 08/07/24 19:31 Eos # (Auto) 0.1 10^3/uL (0.0-0.8) 08/07/24 19:31 Baso # (Auto) 0.0 10^3/uL (0.0-0.1) 08/07/24 19:31 Nucleated RBC % (auto) 0 % 08/07/24 19: Nucleated RBCs # 0.0 /100WBC 08/07/24 19:31 Sodium 136 mmol/L (136-145) 08/07/24 19: Potassium 4.0 mmol/L (3.5-5.1) 08/07/24 19: Chloride 97 mmol/L (98-107) L 08/07/24 19: Carbon Dioxide 26 mmol/L (22-29) 08/07/24 19: Anion Gap 17.0 (5-19) 08/07/24 19: BUN 12 mg/dL (6-20) 08/07/24 19: Creatinine 1.0 mg/dL (0.7-1.2) 08/07/24 19: GFR Calculation 80.8 mL/min (90-130) L 08/07/24 19: Glucose 97 mg/dL (65-115) 08/07/24 19: Calculated Osmolality 282 mOsm/kg (285-295) L 08/07/24 19: Calcium 9.6 mg/dL (8.5-10.5) 08/07/24 19: Total Bilirubin 0.5 mg/dL (0.15-1.2) 08/07/24 19: AST 18 U/L (0-40) 08/07/24 19: ALT 14 U/L (0-41) 08/07/24 19:31 Alkaline Phosphatase 83 U/L (40-130) 08/07/24 19:31 Total Protein 8.4 g/dL (6.6-8.7) 08/07/24 19: Albumin 4.2 g/dL (3.5-5.2) 08/07/24 19:31 Globulin 4.2 g/dL (1.3-4.6) 08/07/24 19:31 Monoscreen Negative (Negative) 08/07/24 19:31 Group A Strep Rapid Negative (Negative) 08/07/24 20:57 No radiology studies performed this visit Discharge Plan Discharge Patient Disposition: Home Clinical Impression: Exudative tonsillitis Condition: Stable Prescriptions: New prednisone 10 mg tablet 10 mg PO DAILY 6 Days Qty: 20 0RF Rx Instructions: Take 5 tabs on day 1-2, 4 tabs on day 3, 3 tabs on day 4, 2 tabs on day 5, and 1 tab on day 6 No Action loratadine 10 mg tablet 10 mg PO DAILY Qty: 30 0RF Chloraseptic Max 15-10 mg lozenge 1 damari mucous membrane .q 2 hr PRN (Reason: sore throat) Qty: 15 1RF amoxicillin-pot clavulanate [Augmentin] 500-125 mg tablet 1 tab PO BID Qty: 14 0RF hydroxyzine HCl 25 mg tablet 25 mg PO DAILY PRN (Reason: anxiety) Qty: 30 0RF Discharge Orders: Discharge ED (Routine); Ordered 08/07/24 Ordered By: Florencia Laureano Referrals: Nancy Khanna DO [Primary Care Provider] - Patient Instructions: Tonsillitis (ED), Tonsillitis - Adult Activity Restrictions/Additional Instructions: Please continue your current antibiotic therapy. I will place you on a steroid taper over the next 6 days. Continue to push fluids is much as possible. Soft food/liquid diet as tolerated. You need to return to the emergency department for worsening sore throat, difficulty swallowing, difficulty controlling your saliva/secretions, muffled voice, fevers, generally feeling worse or unwell, or any other concerns you may have. Print Language: Georgian Coding Level of Care Code ED Customer Strategy Manager for [facility] Hill
[2024-08-07] MEDS: sodium chloride 0.9% 1,000 ML 999 ML IV (20:42)
[2024-08-07] MEDS: dexamethasone 10 mg/mL INJ IVP (20:42)
[2024-08-07] MEDS: cefTRIAXone 1,000 mg SDV 1000 MG IVP (20:44)
[2024-08-07 20:46] VITALS: BP 126/95; PULSE 72; RESP 18; O2SAT 98
[2024-08-07 21:10] LABS: Rapid Strep A Test Negative (Negative)
[2024-08-07 21:58] VITALS: BP 138/88; PULSE 68; RESP 16; O2SAT 97
== END 2024-08-07 22:07 | disposition home or self-care (01) ==
PROVIDERS: Emergency Medicine; Emergency Provider Physician Assistant; PCP Family Medicine
DX: J03.80 Acute tonsillitis due to other specified organisms (principal); F17.290 Nicotine dependence, other tobacco product, uncomplicated
CPT/HCPCS: 36415; 80053; 85025; 86308; 87081; 87880; 96374; 96375; 99284; J0696; J1100; J7030

== ENCOUNTER 2024-10-01 18:43 | Emergency (ER) | payer MEDICAID, SELFPAY ==
[2024-07-15 16:45] VITALS: BP 119/64; BMI 29.3
[2024-10-01 18:59] VITALS: BP 130/91; PULSE 84; RESP 16; TEMP 36.9; O2SAT 96
--- NOTE | 2024-10-01 20:55 | W.ED.WOUNDLC ---
HPI - Wound/Laceration General: Chief Complaint: Wound/Laceration Stated Complaint: L Ring finger cut Time Seen by Provider: 10/01/24 20:47 Source: patient Mode of arrival: ambulatory Limitations: no limitations History of Present Illness: 44yo male presents with a laceration to the left ring finger that occurred at approximately 1830 when he accidentally cut his finger while using a knife in the kitchen. Patient reports he is right-hand dominant. States his tetanus is up-to-date. Patient denies difficulty moving the finger, use of blood thinners, any other concern at this time. Associated symptoms: Denies chills, fever(s) or vomiting Related Data Previous Rx's ?Medication ?Instructions ?Recorded loratadine 10 mg tablet 10 mg PO DAILY #30 tabs 08/06/24 hydroxyzine HCl 25 mg tablet 25 mg PO DAILY PRN anxiety #30 tabs 09/16/24 Allergies Allergy/AdvReac Type Severity Reaction Status Date / Time No Known Allergies Allergy Verified 09/30/24 11:22 Review of Systems Const: Denies: fever(s) or chills GI: Denies: vomiting Skin/Breast: Reports: other (Laceration left finger) [facility] ED PFSH: Medical History Acute pharyngitis RIC (generalized anxiety disorder) Psychiatric care History of retropharyngeal abscess History of seizures Surgical History History of hernia repair Family History Father Prostate cancer Social History Smoking and tobacco/nicotine status: current every day tobacco/nicotine user (Pt. Vapes) Alcohol intake: never Substance/Drug Use: current Substance/Drug use frequency: few times a month Current gender identity: Male Physical Exam Const: COMMON NORMALS: no acute distress, patient oriented x3, healthy appearing and alert GENERAL APPEARANCE: cooperative ORIENTATION/CONSCIOUSNESS: Yes awake OTHER: [facility]. He is able to give history with no difficulty. He is interactive with exam appropriately. No family at bedside HENMT: COMMON NORMALS: normocephalic and atraumatic HEAD & SCALP: normocephalic and atraumatic Chest: CHEST: Yes Symmetrical chest wall rise Resp: COMMON NORMALS: normal respiratory effort EFFORT & INSPECTION: Yes able to speak in complete sentences Extremity: LEFT UPPER EXTREMITY: Yes hand & digits (FROM ) Neuro: COMMON NORMALS: patient oriented x3 SENSORIUM/ORIENTATION: Yes alert Skin: TRAUMA: laceration (1.2 cm linear laceration on the volar aspect distal left fourth digit) linear Procedures Laceration Laceration 1: Site: hand Side (If applicable): left Size (cm): 1.2 Description: linear Depth: simple, single layer Local Anesthetic: lidocaine 1% Amount of anesthesia used (mL): 4 Size (cm): 4-0 Number of sutures: 3 Technique: simple, interrupted Course Vital Signs: Vital signs: Vital Signs Temperature 98.4 F 10/01/24 18:59 Pulse Rate 84 10/01/24 18:59 Respiratory Rate 16 10/01/24 18:59 Blood Pressure 130/91 10/01/24 18:59 Pulse Oximetry 96 10/01/24 18:59 Oxygen Delivery Me thod Room Air 10/01/24 18:59 MDM - Wound/Laceration Medical Decision Making 44yo male presents with a laceration to the left ring finger that occurred at approximately 1830 when he accidentally cut his finger while using a knife in the kitchen. Tetanus up-to-date per patient. Patient is nontoxic in appearance. Vital signs are stable. Laceration repaired with sutures. Discussed wound care. Recommend following up with primary care/urgent care in 7 to 10 days for suture removal, sooner if needed. Return precautions provided. Patient states understanding and has no further questions or concerns at this time. Medical Records I reviewed the patient's medical records. No radiology studies performed this visit Discharge Plan Discharge Patient Disposition: Home Clinical Impression: Laceration of left ring finger Qualifiers: Encounter type: initial encounter Damage to nail status: without damage Foreign body presence: without foreign body Qualified Code(s): S61.215A - Laceration without foreign body of left ring finger without damage to nail, initial encounter Condition: Stable Prescriptions: No Action loratadine 10 mg tablet 10 mg PO DAILY Qty: 30 0RF hydroxyzine HCl 25 mg tablet 25 mg PO DAILY PRN (Reason: anxiety) Qty: 30 1RF Discharge Orders: Discharge ED (Routine); Ordered 10/01/24 Ordered By: Andi Chase Referrals: Nancy Khanna DO [Primary Care Provider, Family Practice] Patient Instructions: Laceration (ED) Activity Restrictions/Additional Instructions: The laceration was repaired with sutures. Please avoid submersion of the wound under any water until healed. Gently clean with soap and water, then apply antibiotic ointment Follow-up with primary care or urgent care in 7 to 10 days for suture removal, sooner if needed. Return to the emergency department if any rapid worsening symptoms, further injury, and as needed Print Language: Greek Coding Level of Care Code ED Wildlife Policy Professional for [facility]
[2024-10-01 22:09] VITALS: BP 118/78; PULSE 59; RESP 16; O2SAT 98
--- NOTE | 2024-10-01 22:10 | PC.NURSE ---
wound dressed with telfa, frog splint and coban
== END 2024-10-01 22:08 | disposition home or self-care (01) ==
PROVIDERS: Emergency Provider Nurse Practitioner; PCP Family Medicine
DX: S61.215A Laceration without foreign body of left ring finger without damage to nail, initial encounter (principal); F17.290 Nicotine dependence, other tobacco product, uncomplicated; W26.0XXA Contact with knife, initial encounter
CPT/HCPCS: 12001; 99282